=== PATIENT | female | born 1975 | race Asian ===

== ENCOUNTER 2016-10-10 14:11 | Emergency (ER) | payer OTHER ==
[2016-10-10 14:50] VITALS: BP 127/87
--- NOTE | 2016-10-10 15:51 | UC ---
Respiratory Complaint HPI - HPI Summary HPI Summary: Hoarseness, cough, trouble breathing starting 10 days ago. Denies fever, nasal congestion, or ST. Feels symptoms are getting worse and is having increasing trouble sleeping at night. Runs a daycare. - History of Current Complaint Chief Complaint: UCRespiratory Stated Complaint: COUGH Time Seen by Provider: 10/10/16 15:21 Hx Obtained From: Patient Hx Last Menstrual Period: 3 WEEKS AGO ?: No Onset/Duration: Gradual Onset, Lasting Days Timing: Constant Severity Initially: Mild Severity Currently: Moderate Character: Cough: Nonproductive Aggravating Factors: Deep Breaths, Recumbent Position Alleviating Factors: Upright Position Associated Signs And Symptoms: Positive: Hoarseness. Negative: Wheezing, Calf Pain, Calf Swelling, Sinus Discomfort - Allergies/Home Medications Allergies/Adverse Reactions: Allergies Allergy/AdvReac Type Severity Reaction Status Date / Time No Known Allergies Allergy Verified 10/10/16 14:50 Home Medications: Home Medications guaiFENesin ER TAB [Mucinex*] 600 mg PO PRN 10/10/16 [History] PMH/Surg Hx/FS Hx/Imm Hx Previously Healthy: Yes - Surgical History Surgical History: None - Family History Known Family History: Positive: Hypertension - Social History Occupation: Employed Full-time Lives: With Family Alcohol Use: Occasionally Substance Use Type: None Smoking Status (MU): Never Smoked Tobacco Review of Systems Constitutional: Fatigue Skin: Negative Eyes: Negative ENT: Negative Respiratory: Cough Cardiovascular: Negative Gastrointestinal: Negative Genitourinary: Negative Motor: Negative Neurovascular: Negative Musculoskeletal: Negative Neurological: Negative Psychological: Negative All Other Systems Reviewed And Are Negative: Yes Physical Exam Triage Information Reviewed: Yes Appearance: No Pain Distress, Well-Nourished Vital Signs: Initial Vital Signs Temp 98.2 F 10/10/16 14:47 Pulse 62 10/10/16 14:47 Resp 16 10/10/16 14:47 BP 127/87 10/10/16 14:47 Pulse Ox 100 10/10/16 14:47 Vital Signs Reviewed: Yes Eye Exam: Normal Eyes: Positive: Conjunctiva Clear ENT: Positive: Hearing grossly normal, Pharynx normal, TMs normal, Muffled/ hoarse voice - hoarse Dental Exam: Normal Neck exam: Normal Neck: Positive: Supple, Nontender, No Lymphadenopathy Respiratory Exam: Other - constant dry cough Respiratory: Positive: Chest non-tender, Lungs clear, Normal breath sounds, No respiratory distress, No accessory muscle use Cardiovascular Exam: Normal Cardiovascular: Positive: RRR, No Murmur Musculoskeletal Exam: Normal Neurological Exam: Normal Neurological: Positive: Alert Psychological Exam: Normal Skin Exam: Normal UC Diagnostic Evaluation - Laboratory O2 Sat by Pulse Oximetry: 100 Respiratory Course/Dx - Differential Dx/Diagnosis Provider Diagnoses: acute bronchitis Discharge - Discharge Plan Condition: Stable Disposition: HOME Prescriptions: Acetaminop/Codeine 30 MG TAB* [Tylenol/Codeine 30 MG TAB*] 1 - 2 tab PO Q6H PRN #25 tab MDD 8 PRN Reason: Pain Albuterol HFA INHALER* [Ventolin HFA Inhaler*] 1 - 2 puff INH Q4H PRN #1 mdi PRN Reason: wheeze, cough Benzonatate CAP* [Tessalon CAP*] 100 mg PO TID PRN #30 cap PRN Reason: Cough predniSONE TAB* [Deltasone TAB*] 50 mg PO DAILY #5 tab Patient Education Materials: Acute Bronchitis (ED) Referrals: Sherrill Frias MD [Primary Care Provider] - 7 Days Additional Instructions: Call or return if you develop increasing fever, shortness of breath, chest pain , bloody sputum, or otherwise worsen. If you have not improved at all after several days, contact your primary care physician or return here.
--- NOTE | 2016-10-10 16:15 | RAD ---
Indication: Dyspnea. 2 views of the chest including dual energy PA views demonstrate no mediastinal shift. Heart is of normal size and configuration. Lung durant are clear. IMPRESSION: No active cardiopulmonary disease is noted.
== END 2016-10-10 16:12 | disposition home or self-care (01) ==
LOC: UCEAST 14:11
DX: J20.9 Acute bronchitis, unspecified (principal)
CPT/HCPCS: 71020; 99212; G0463